=== PATIENT | female | born 1930 | race Caucasian/White ===

== ENCOUNTER 2018-12-09 12:43 | Outpatient (CLI) | payer OTHER ==
[~2018-12-09 12:43] MED LIST: CELEXA20 MG PO; DEXILANT60 MG PO; DIOVAN320 MG PO; IMDUR60 MG PO; LIPITOR40 MG PO; SYNTHROID75 MCG PO; ZETIA10 MG PO
== END 2018-12-09 12:49 | disposition home or self-care (01) ==
LOC: RAD 12:43
DX: Z12.31 Encounter for screening mammogram for malignant neoplasm of breast (principal); Z87.898 Personal history of other specified conditions; N60.01 Solitary cyst of right breast; M25.562 Pain in left knee